=== PATIENT | female | born 1995 | race Caucasian/White ===

== ENCOUNTER 2019-06-29 03:16 | Emergency (ER) | payer MEDICAID ==
[~2019-06-29] VITALS: Ht 157.5 cm; Wt 46.3 kg
--- NOTE | 2019-06-29 03:42 | NUR ---
ED Nurse Note: Walk-in patient accompanied by friend with complaints of tarry stool and fresh blood when wiping. Patient reports being seen last for inflammed intestine. First stool observation, today. Will continue to monitor for orders. Patient's friend is at bedside.
[2019-06-29 03:44] VITALS: BP 116/84
--- NOTE | 2019-06-29 04:05 | Emergency Room Report ---
History of Present Illness General Chief Complaint: Gastrointestinal Bleed Source: Patient Present Illness HPI This a 24-year-old female with no past medical history. She presents with chief complaint of black stool. She had bloody stool about 5 days ago. She has severe abdominal pain and cramp. She went to an ER in [place]. CT scan was done and it showed she had inflammation. She was put on antibiotics and steroids. She improved. She did take Pepto-Bismol before she went to the ER. Tonight she had her first bowel movement and it was small and solid. She noticed it was black around it. She has some mild dull achy pain but otherwise no fever chills but no nausea no vomiting. No bloody diarrhea. No family history inflammatory bowel disease. Her doctor is trying to schedule her for colonoscopy. She did get a stool sample tonight for him. Allergies: Coded Allergies: PENICILLINS (Verified Allergy, Unknown, 06/29/19) Patient History Past Medical History: see triage record, old chart reviewed Past Surgical History: other Pertinent Family History: none Social History: Denies: smoking Last Menstrual Period: 06/03/19 Now: No Immunizations: other Reviewed Nursing Documentation: PMH: Agreed; PSxH: Agreed Nursing Documentation-PMH Past Medical History: No History, Except For Review of Systems Eye: Denies: eye pain, blurred vision ENT: Denies: ear pain, nose congestion, throat swelling Respiratory: Denies: cough, shortness of breath Cardiovascular: Denies: chest pain, palpitations Gastrointestinal: Reports: abdominal pain; Denies: diarrhea, nausea, vomiting Musculoskeletal: Denies: back pain, joint pain Skin: Denies: rash Neurological: Denies: headache, numbness Endocrine: Denies: increased thirst, increased urine Hematologic/Lymphatic: Denies: easy bruising All Other Systems: negative except mentioned in HPI Physical Exam Vital Signs Date Time Temp Pulse Resp B/P (MAP) Pulse Ox O2 Delivery O2 Flow Rate FiO2 06/29/19 03:23 98.1 77 16 116/84 (95) 100 Room Air Vitals normal Sp02 EP Interpretation: reviewed, normal General Appearance: well appearing, no apparent distress, alert Head: normocephalic, atraumatic Eyes: bilateral eye PERRL, bilateral eye EOMI ENT: hearing grossly normal, normal pharynx Neck: full range of motion, supple, no meningismus Respiratory: chest non-tender, lungs clear, normal breath sounds Cardiovascular #1: regular rate, rhythm, no murmur Gastrointestinal: normal bowel sounds, non tender, no mass, no organomegaly, no bruit, non-distended Musculoskeletal: back normal, normal range of motion, gait/station normal Psychiatric: mood/affect normal Medical Decision Making Diagnostic Impression: Primary Impression: Abdominal pain Qualified Codes: R10.32 - Left lower quadrant pain ER Course Patient had bloody diarrhea last week. My main concern is she probably has infectious diarrhea versus inflammatory bowel disease. The black stool is probably secondary to the Pepto-Bismol. She has solid stool and black around it. It was not extremely malodorous or tarry per patient. CBC is stable. Will discharge home with reassurance. Last Vital Signs Date Time Temp Pulse Resp B/P (MAP) Pulse Ox O2 Delivery O2 Flow Rate FiO2 06/29/19 03:44 98.1 77 16 116/84 100 Room Air Status: improved Disposition: HOME, SELF-CARE Condition: Stable Scripts Unable to Obtain Active Prescriptions or Reported Meds Referrals: NON PHYSICIAN (PCP) Additional Instructions: Follow-up with your doctor as scheduled. Bring the stool sample to your doctor' s visit. Advance diet as tolerated. Return if worse. Abelino Kebede MD Jun 29, 2019 04:05
[2019-06-29 04:19] LABS: EOSINOPHILS % (AUTO) 2.5 % (0.0-3.0); HEMATOCRIT 41.7 % (37.0-47.0); HEMOGLOBIN 14.1 G/DL (12.0-16.0); LYMPHOCYTES % (AUTO) 34.2 % (20.0-45.0); MEAN CORPUSCULAR VOLUME 81 FL (80-99); NEUTROPHILS % (AUTO) 53.3 % (45.0-75.0); PLATELET COUNT 390 K/UL (150-450); RED BLOOD COUNT 5.13 M/UL (4.20-5.40); RED CELL DISTRIBUTION WIDTH 11.4 % (11.6-14.8); WHITE BLOOD COUNT 12.7 K/UL (4.8-10.8)
[2019-06-29] MEDS ORDERED: LACTULOSE20 GM/301 ORAL (04:39)
[2019-06-29 04:44] VITALS: BP 116/84
--- NOTE | 2019-06-29 04:44 | NUR ---
ER DISCHARGE NOTE: Patient is cleared to be discharged per ERMD, pt is aox4, on room air, with stable vital signs. pt was given dc and prescription instructions, pt was able to verbalize understanding, pt id band and iv site removed without complications. pt is able to ambulate with steady gait, accopanied by her boyfriend. pt took all belongings.
== END 2019-06-29 04:42 | disposition home or self-care (01) ==
LOC: EMR 03:39
DX: R10.32 Left lower quadrant pain (principal); R19.5 Other fecal abnormalities; Z88.0 Allergy status to penicillin
CPT/HCPCS: 36415; 85025; Z7502; 99283